=== PATIENT | female | born 1995 | race Caucasian/White ===

== ENCOUNTER 2018-06-24 22:17 | Emergency (ER) | payer SELFPAY, OTHER, MEDICAID ==
[2018-06-25] MEDS: LIDOCAINE/MYLANTA 40 ML BTL PO (01:22)
[2018-06-25] MEDS: ONDANSETRON (ODT) 4 MG TAB ODT (01:22)
== END 2018-06-25 02:00 | disposition home or self-care (01) ==
LOC: FTE 22:17
DX: R51 Headache (principal); R10.12 Left upper quadrant pain
CPT/HCPCS: 99283